=== PATIENT | female | born 1950 | race Caucasian/White ===

== ENCOUNTER → 2018-06-16 | Outpatient (CLI) | payer MEDICARE | END | disposition home or self-care (01) | LOC: RAH 14:07 | PROVIDERS: ATTEND Internal Medicine Hematology & Oncology | DX: I82.412 Acute embolism and thrombosis of left femoral vein (principal); D30.01 Benign neoplasm of right kidney | CPT/HCPCS: 93971 ==

== ENCOUNTER → 2018-11-20 | Outpatient (CLI) | payer MEDICARE | END | disposition home or self-care (01) | LOC: RAH 12:17 | PROVIDERS: ATTEND Internal Medicine Hematology & Oncology | DX: I82.412 Acute embolism and thrombosis of left femoral vein (principal); D30.01 Benign neoplasm of right kidney | CPT/HCPCS: 93971 ==

== ENCOUNTER 2023-01-08 16:45 | Observation (INO) | payer MEDICARE ==
[~2023-01-08] VITALS: Ht 167.6 cm; Wt 85.5 kg
[2023-01-08] MEDS ORDERED: WARF7.5T49 PO (17:45)
[2023-01-08] MEDS ORDERED: WARF-57 PO (17:46)
[2023-01-08] MEDS ORDERED: HYDR12.54 PO (17:46)
[2023-01-08] MEDS ORDERED: ATOR40TA69 PO (17:46)
[2023-01-08 17:53] VITALS: BP 163/92; PULSE 74; RESP 18
[2023-01-08 18:00] VITALS: O2SAT 99
[2023-01-08] MEDS ORDERED: AMIODARONE 900MG VIAL 540 MG in DEXTROSE 5%-WATER 300 ML IV ONE (18:00)
[2023-01-08] MEDS ORDERED: AMIODARONE 900MG VIAL 360 MG in DEXTROSE 5%-WATER 200 ML IV SCH (18:00)
[2023-01-08] MEDS ORDERED: AMIODARONE 900MG VIAL 150 MG in DEXTROSE 5%-WATER 100 ML IV SCH (18:00)
[2023-01-08] MEDS ORDERED: POTASSIUM CHLORIDE 10% ELIXIR 20 MEQ/15 ML UDCUP PO PRN (19:00)
[2023-01-08] MEDS ORDERED: KCL 20 MEQ ERTAB PO PRN (19:00)
[2023-01-08] MEDS ORDERED: MAGNESIUM 2GM PREMIX 50ML 50 ML IV PRN (19:00)
[2023-01-08] MEDS ORDERED: POTASSIUM CHLORIDE 20MEQ/100ML 100 ML IV PRN (19:00)
[2023-01-08] MEDS ORDERED: ONDANSETRON 4MG INJ IVP PRN (19:00)
[2023-01-08 20:03] VITALS: BP 102/47; PULSE 65; RESP 18
[2023-01-08 20:10] VITALS: O2SAT 98
[2023-01-08] MEDS: FAMOTIDINE 20MG TAB PO SCH (20:46)
[2023-01-08] MEDS ORDERED: LOSA50TA64 PO (22:44)
[2023-01-08] MEDS ORDERED: LEVO137T2 PO (22:44)
[2023-01-08 22:45] VITALS: BP 128/65
[2023-01-09 00:50] VITALS: BP 119/59; PULSE 69; RESP 18
[2023-01-09 04:04] VITALS: BP 142/87; PULSE 72; RESP 18
[2023-01-09 05:12] LABS: BASOPHILS # (AUTO) 0.04 K/uL (0.00-0.20); BASOPHILS % (AUTO) 0.6 % (0.0-5.0); EOSINOPHILS # (AUTO) 0.18 K/uL (0.00-0.70); EOSINOPHILS % (AUTO) 2.8 % (0.0-8.0); HEMATOCRIT 37.2 % (36-48); IMMATURE GRANULOCYTE ABSOLUTE 0.02 K/uL (0-1); LYMPHOCYTES # (AUTO) 2.6 K/uL (1.0-4.8); LYMPHOCYTES % (AUTO) 39.9 % (21.0-51.0); MEAN CORPUSCULAR HEMOGLOBIN 31.6 pg (27.0-33.0); MEAN CORPUSCULAR HGB CONC 33.6 g/dL (32.0-36.0); MEAN CORPUSCULAR VOLUME 93.9 fL (79-99); MONOCYTES # (AUTO) 0.5 K/uL (0.1-1.0); MONOCYTES % (AUTO) 7.3 % (3.0-13.0); NEUTROPHILS # (AUTO) 3.2 K/uL (1.8-7.7); NEUTROPHILS % (AUTO) 49.1 % (40.0-77.0); PLATELET COUNT (AUTO) 173 K/uL (130-400); RED BLOOD CELL COUNT(AUTO) 3.96 MIL/uL (4.00-5.50); RED CELL DISTRIBUTION WIDTH 12.2 % (11.0-15.5); WHITE BLOOD COUNT (AUTO) 6.5 K/uL (4.8-10.8)
[2023-01-09 05:24] LABS: INR 2.45 (0.85-1.15); PROTHROMBIN TIME 26.8 SEC (9.6-11.6)
[2023-01-09 05:38] LABS: ALBUMIN 3.3 g/dL (3.5-5.0); BILIRUBIN,TOTAL 0.3 mg/dL (0.2-1.0); CREATININE 1.3 mg/dL (0.5-1.5); MAGNESIUM 1.7 mg/dL (1.80-2.40); POTASSIUM 3.6 mmol/L (3.5-5.1); THYROID STIMULATING HORMONE 4.95 uIU/mL (0.36-3.74); TOTAL PROTEIN, SERUM 6.6 g/dL (6.0-8.3)
[2023-01-09 07:21] VITALS: BP 150/81; PULSE 69; RESP 18
[2023-01-09 08:19] VITALS: O2SAT 99
[2023-01-09] MEDS: FAMOTIDINE 20MG TAB PO SCH (08:23)
[2023-01-09] MEDS ORDERED: METOPROLOL TARTRATE 25 MG TAB PO SCH (10:00)
[2023-01-09 11:32] VITALS: BP 160/76; PULSE 62; RESP 18
== END 2023-01-09 14:00 | disposition home or self-care (01) ==
LOC: EDH 16:45 → 2AH 17:26 → INTOOBSV 17:26
PROVIDERS: ADMIT Internal Medicine Hematology & Oncology; ATTEND Internal Medicine Hematology & Oncology
DX: I48.20 Chronic atrial fibrillation, unspecified (principal); I12.9 Hypertensive chronic kidney disease with stage 1 through stage 4 chronic kidney disease, or unspecified chronic kidney disease; N18.30 Chronic kidney disease, stage 3 unspecified; E07.9 Disorder of thyroid, unspecified; D68.59 Other primary thrombophilia; Z79.01 Long term (current) use of anticoagulants; Z86.718 Personal history of other venous thrombosis and embolism; Z79.899 Other long term (current) drug therapy; Z98.890 Other specified postprocedural states
CPT/HCPCS: 96365; 96366 ×3; 96376; 96368; 84443; 83735; 84100; 80053; 85025; 85610; 36415; J7060 ×3; J0282 ×3; G0378; J3475; 96367

== ENCOUNTER → 2023-01-25 | Outpatient (CLI) | payer MEDICARE ==
[~2023-01-25] MED LIST: ATOR40TA69 PO; HYDR12.54 PO; LEVO137T2 PO; LOSA50TA64 PO; WARF-57 PO; WARF7.5T49 PO
== END | disposition home or self-care (01) ==
LOC: SHCH 10:00
PROVIDERS: ATTEND Student in an Organized Health Care Education/Training Program
DX: I48.0 Paroxysmal atrial fibrillation (principal)
CPT/HCPCS: 93306